=== PATIENT | female | born 1965 ===

== ENCOUNTER 2025-06-25 11:52 | Outpatient (AMB) | payer OTHER, SELFPAY ==
--- NOTE | 2025-06-25 12:31 | MHC.PC.OV ---
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 ?? Prior PCP:? Dr Grier Last office visit/CPE:? May this year Acute issue(s):? Est care ?? PMHx:? BRACA 1 Sees Breast Oncologist annually at [facility] [place]. Osteoporosis. Anxiety. Mild Asthma SurgHx:? s/p LIMA 2009, Breast implants but no mastectomy. [facility]. FHx:? Mom: BRACA1 Ovarian CA. Dad: Unknown. Aunt Perineal CA SocHx:? Nonsmoker, EtOH 1-2 dr once a week. [facility] Medical History (Updated 06/25/25 @ 13:19 by Israel Barajsa) BRCA gene mutation positive in female Anxiety Osteoporosis High cholesterol Asthma Surgical History (Updated 06/25/25 @ 13:10 by Israel Barajas) H/O: hysterectomy H/O breast implant Hx of foot surgery Family History (Updated 06/25/25 @ 12:48 by PORSCHE Figueredo) Mother Ovarian cancer Maternal Grandfather FH: heart attack Maternal Grandmother Ovarian cancer Social History (Updated 06/25/25 @ 12:49 by PORSCHE Figueredo) Housing: House Patient Tobacco Use Status: Never used Tobacco e-Cigarette/Vaping Use: Never Used Second Hand Smoke Exposure: No Substance Use Type: Marijuana service: No Current occupational status: employed 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 1. Little interest or pleasure in doing things: not at all 2. Feeling down, depressed, or hopeless: not at all 3. Trouble falling or staying asleep, or sleeping too much: several days 4. Feeling tired or having little energy: not at all 5. Poor appetite or overeating: not at all 6. Feeling bad about yourself - or that you are a failure or have let yourself or your family down: not at all 7. Trouble concentrating on things, such as reading the newspaper or watching television: not at all 8. Moving or speaking so slowly that other people could have noticed. Or the opposite - being so fidgety or restless that you have been moving around a lot more than usual: not at all 9. Thoughts that you would be better off or of hurting yourself in some way: not at all Total score: 1 Depression Screening Interpretation: Negative Depression Screening Done: Yes 91721 - PHQ-9 Billing: Yes Source: Developed by Drs. Errol Colon, Tana Melgoza, Chuy Lima and colleagues, with an educational breann from [employer]. Thrive Questionnaire Date Thrive assessed: 06/25/25 I am a: Patient What is your living situation today?: I have a steady place to live Within the past 12 months, did the food you bought not last and you didn't have the money to get more?: I choose not to answer this question Within the past 12 months, did you worry whether your food would run out before you got money to buy more?: I choose not to answer this question Do you have trouble paying for medicines?: I choose not to answer this question Do you have trouble getting transportation to medical appointments?: No Do you have trouble paying your heating and electricity bill?: I choose not to answer this question Do you have trouble taking care of your child, family member or friend?: No Do you have trouble with day-to-day activities such as bathing, preparing meals, shopping, managing finances, etc.?: No Are you currently unemployed and looking for a job?: No Are you interested in more education?: No Please select the resources that you would like help with: None Currently or been in a relationship where the following occur: No concerns reported THRIVE Score: 0 AUDIT C Alcohol Use Questionnaire (AUDIT-C) 1. How often do you have a drink containing alcohol?: 2-4 times a month 2. How many drinks containing alcohol do you have on a typical day when you are drinking?: 1 or 2 3. How often do you have six or more drinks on one occasion?: Never Total Score: 2 Score Reviewed/Action Taken: Yes GE[place]-7 AMB Questionnaire GE[place]IA-7 Date GE[place]IA - 7 assessed: 06/25/25 Feeling nervous, anxious, or on edge: 1 = Several days Not being able to stop or control worryin = Several days Worrying too much about different things: 1 = Several days Trouble relaxin = Several days Being so restless that it is hard to sit still: 0 = Not at all Becoming easily annoyed or irritable: 0 = Not at all Feeling afraid as if something awful might happen: 0 = Not at all Total [place]-7 score (0-4 normal; 5-9 mild; 10-14 moderate; 15-21 severe): 4 Source: Developed by Drs. Errol Colon, Tana Melgoza, Chuy Lima and colleagues, with an educational breann from [employer]. [place]-7 Assessment Billing [place]-7 Assessment Tool: [place]-7 Assessment 61220 ACT Questionnaire In the past 4 weeks, how much of the time did your asthma keep you from getting as much done at work, school or at home?: None of the time During the past 4 weeks, how often have you had shortness of breath?: Not at all During the past 4 weeks, how often did your asthma symptoms wake you up at night or earlier than usual in the morning?: Not at all During the past 4 weeks, how often have you had to use your rescue inhaler or nebulizer medication?: Not at all How would you rate your asthma control during the past 4 weeks?: Completely controlled ACT Interpretation: Negative Score: 25 Review of Systems Const Denies chills, Denies fatigue, Denies fever(s), Denies headache(s) and Denies weakness ENT Denies dizziness and Denies headache(s) Card Denies chest pain, Denies lightheadedness, Denies dyspnea and Denies other (Palpitations) Resp Denies cough, Denies dyspnea, Denies wheezing and Denies other ( shortness of breath) Musc Denies numbness and Denies tingling Neuro Denies dizziness, Denies headache(s), Denies numbness, Denies tingling, Denies paresthesias and Denies weakness Psych Denies anxiety and Denies depression Endo Denies fatigue Aller/Immun Denies wheezing Physical exam (Primary Care) Vital Signs: Last Vital Signs Temp 98.0 F 06/25/25 12:52 Pulse 92 06/25/25 12:52 Resp 16 06/25/25 12:52 BP 120/80 06/25/25 12:52 Pulse Ox 100 06/25/25 12:52 Oxygen Delivery Method Room Air 06/25/25 12:52 BMI result Body Mass Index 23.1 Tobacco/Smoking Status: Tobacco use Status Tobacco use date assessed 06/25/25 06/25/25 12:54 Patient Tobacco Use Status Never used Tobacco 06/25/25 12:54 e-Cigarette/Vaping Use Never Used 06/25/25 12:54 PHQ-9: PHQ-9 Score PHQ-9: Total score 1 06/25/25 12:58 Depression Screening Interpretation: Negative Thrive Assessment: Date of Thrive Assessment Date Thrive assessed 06/25/25 06/25/25 12:54 Currently or been in a relationship where the following occur: No concerns reported Const General: no acute distress and well developed Nutritional Appearance: well nourished Orientation/consciousness: patient oriented x3 HENMT Head: Yes normocephalic and Yes atraumatic Eyes General: appearance normal, both eyes and all related structures Pupils: Equal, round and reactive pupils present EOM: EOMs intact bilaterally Resp Effort & Inspection: normal respiratory effort Auscultation: clear to auscultation bilaterally Cardio Rate: regular rate Rhythm: regular rhythm Heart sounds: S1 normal heart sound present, S2 normal heart sound present, no gallops, no murmurs and no rubs Neuro General: patient oriented x3 and gait normal Cranial nerves: Yes Equal, round and reactive pupils present Psych Affect: normal affect Coding Level of Care Code New Pt Level 3 (19512) Diagnoses BRCA gene mutation positive in female Z15.01; Z15.02; Z15.05; Z15.060; Z15.068 Osteoporosis M81.0 H/O: hysterectomy Z90.710 Heart murmur R01.1 Anxiety F41.9 Difficulty concentrating R41.840 Laboratory exam ordered as part of routine general medical examination Z00.00 Additional Codes Asthma Control Questionnaire - ACT Interpretation: Negative ([id number]) [place]IA-7 Assessment Billing - [place]-7 Assessment Tool: [place]IA-7 Assessment 89847 ([id number]) PHQ-9 - 20809 - PHQ-9 Billing: Yes ([id number]) Assessment & Plan Assessment & Plan (1) BRCA gene mutation positive in female: Code(s): Z15.01 - Genetic susceptibility to malignant neoplasm of breast; Z15.02 - Genetic susceptibility to malignant neoplasm of ovary; Z15.05 - Genetic susceptibility to malignant neoplasm of fallopian tube(s); Z15.060 - Genetic susceptibility to colorectal cancer; Z15.068 - Genetic susceptibility to other malignant neoplasm of digestive system Category: Medical Plan: BRCA gene positive - no personal history of cancer - and she is s/p LIMA Patient has not undergone mastectomies though she does have breast implants, incidentally. She gets mammograms via her cell coverer in [place]. She also has oncology via [facility] [place] (2) Osteoporosis: Code(s): M81.0 - Age-related osteoporosis without current pathological fracture Category: Medical Plan: Patient is on raloxifene and followed by endocrinology Continue raloxifene Continue good sources of calcium and vitamin-D Encouraged weight-bearing exercise Patient notes that her most recent bone density test was stable (3) H/O: hysterectomy: Code(s): Z90.710 - Acquired absence of both cervix and uterus Category: Surgical Plan: As above (4) Heart murmur: Code(s): R01.1 - Cardiac murmur, unspecified Category: Medical Plan: Patient notes that she has been told she has murmur in the past. No murmur is evident today Will await records (5) Anxiety: Code(s): F41.9 - Anxiety disorder, unspecified Category: Medical Plan: Patient takes bupropion Stable Current medication (6) Difficulty concentrating: Code(s): R41.840 - Attention and concentration deficit Category: Medical Plan: As above patient is on bupropion (7) Laboratory exam ordered as part of routine general medical examination: Code(s): Z00.00 - Encounter for general adult medical examination without abnormal findings Category: Medical Plan: Check labs Orders: Orders Comprehensive [place]. Panel Fast Today Z00.00 - Encounter for general adult medical examination without abnormal findings Complete Blood Count Auto Diff Today Z00.00 - Encounter for general adult medical examination without abnormal findings Lipid Panel Today Z00.00 - Encounter for general adult medical examination without abnormal findings Microalbumin, Random (w Creat) Today I10 - Essential (primary) hypertension TSH reflex Free T4 Today Z00.00 - Encounter for general adult medical examination without abnormal findings UA CC w/rflx Micro + Cult Today Z00.00 - Encounter for general adult medical examination without abnormal findings Medications: New raloxifene (Evista) 60 mg PO DAILY 28 tabs 0RF 28 days
[2025-06-25 12:52] VITALS: BP 120/80; PULSE 92; RESP 16; TEMP 36.7; O2SAT 100; BMI 23.1
== END 2025-06-25 13:22 | disposition home or self-care (01) ==
LOC: HO.HMCFM 11:53
PROVIDERS: PCP Family Medicine; Visit Provider Family Medicine
DX: Z15.01 Genetic susceptibility to malignant neoplasm of breast (principal); Z15.02 Genetic susceptibility to malignant neoplasm of ovary; Z15.05 Genetic susceptibility to malignant neoplasm of fallopian tube(s); Z15.060 Genetic susceptibility to colorectal cancer; Z15.068 Genetic susceptibility to other malignant neoplasm of digestive system; M81.0 Age-related osteoporosis without current pathological fracture; Z90.710 Acquired absence of both cervix and uterus; R01.1 Cardiac murmur, unspecified; F41.9 Anxiety disorder, unspecified; R41.840 Attention and concentration deficit; Z00.00 Encounter for general adult medical examination without abnormal findings

== ENCOUNTER → 2025-06-25 11:52 | Outpatient (BNVA) | payer OTHER, SELFPAY | PROVIDERS: PCP Family Medicine; Visit Provider Family Medicine | DX: Z00.00 Encounter for general adult medical examination without abnormal findings (principal); Z15.01 Genetic susceptibility to malignant neoplasm of breast; Z15.02 Genetic susceptibility to malignant neoplasm of ovary; Z15.05 Genetic susceptibility to malignant neoplasm of fallopian tube(s); Z15.060 Genetic susceptibility to colorectal cancer; Z15.068 Genetic susceptibility to other malignant neoplasm of digestive system; M81.0 Age-related osteoporosis without current pathological fracture; R01.1 Cardiac murmur, unspecified; F41.9 Anxiety disorder, unspecified; R41.840 Attention and concentration deficit; Z90.710 Acquired absence of both cervix and uterus | CPT/HCPCS: 96127; 96160 ==